=== PATIENT | female | born 1950 | race Caucasian/White ===

== ENCOUNTER → 2018-08-23 | Outpatient (CLI) | payer MEDICARE, BC ==
[~2018-08-23] MED LIST: CELEBREX 200MG200 MG PO; EVISTA 60MG60 MG/TAB PO; FOLIC ACID PO; HCTZ PO; SYNTHROID 0.0.025 MG PO; ZOLOFT50 MG PO
[2018-08-23 09:41] LABS: HIV 1/2 Antibodies Non-Reactive; HIV-1p24 Antigen Non-Reactive
== END ==
LOC: COL.LAB 08:34
PROVIDERS: Orthopaedic Surgery
DX: Z01.812 Encounter for preprocedural laboratory examination (principal); M17.11 Unilateral primary osteoarthritis, right knee

== ENCOUNTER 2020-02-24 08:14 | Day surgery (SDC) | payer MEDICARE, BC ==
[~2020-02-24] VITALS: Ht 165.1 cm; Wt 112.2 kg
[2020-02-24] VITALS (13 sets, daily range): BP systolic 98–174; BP diastolic 58–100; PULSE 69–83; TEMP 98
[2020-02-24 08:57] LABS: HEMOGLOBIN 15.1 g/dl (12.5-16.0); MEAN CELL VOLUME 97 fl (80.0-100.0); MEAN CORPUSCULAR HEMOGLOBIN 32 pg (27.0-31.0); MEAN CORPUSCULAR HGB CONC 33 g/dl (33.0-37.0); MEAN PLATELET VOLUME 9.6 fl (7.4-10.4); PLATELET COUNT 276 K/mm3 (130-400); RED BLOOD COUNT 4.74 M/mm3 (4.10-5.30); REDCELL DISTRIBUTION WIDTH-CV 13.1 % (11.5-14.5)
[2020-02-24 09:00] LABS: PROTHROMBIN TIME 10.9 SECONDS (9.7-12.8)
[2020-02-24] MEDS ORDERED: EVISTA 60MG60 MG/TAB PO (09:05)
[2020-02-24] MEDS ORDERED: ZOLOFT 100MG100 MG PO (09:05)
[2020-02-24] MEDS ORDERED: HCTZ12.5TAB PO (09:05)
[2020-02-24 09:06] LABS: CALCIUM 9.1 mg/dL (8.4-10.2); CREATININE, serum 0.64 (0.52-1.25); POTASSIUM 3.8 mmol/L (3.4-5.0)
[2020-02-24] MEDS ORDERED: SYNTHROID 0.0.025 MG PO (09:06)
[2020-02-24] MEDS ORDERED: FOSAMAX 70MG TA70 MG PO (09:06)
[2020-02-24] MEDS ORDERED: LIPITOR 10MG10 MG PO ×2 (09:07→11:47)
[2020-02-24] MEDS ORDERED: TYLENOL 8 HR PO (09:07)
[2020-02-24] MEDS ORDERED: ASPIRIN E.C. 8181 MG PO (09:07)
[2020-02-24] MEDS ORDERED: VALTREX 50500 MG/TAB PO (09:07)
[2020-02-24] MEDS ORDERED: KLOR-CON SPRIN10 MEQ PO (09:08)
[2020-02-24] MEDS ORDERED: TOPROL XL 25MG25 MG PO (09:08)
--- NOTE | 2020-02-24 11:02 | NUR ---
SEE MERGE DOCUMENTATION FOR MEDICATION ADMINISTRATION AND INTRA/POST PROCEDURE SEDATION ASSESSMETNS.
--- NOTE | 2020-02-24 16:24 | NUR ---
DC instructions reviewed with pt, she expresses understanding. INT DC'd with catheter intact, and bleeding controlled at site. Air removed from TR band in 2-3ml increments, pt tolerate well and no bleeding at site. Radial puncture site covered with 2x2 and bandaid. Rt groin puncture site remains soft to palpation, and dressing is clean, dry and intact. Pt is assisted out by wheelchair to 's car.
== END 2020-02-24 16:27 | disposition home or self-care (01) ==
LOC: COL.CAR 08:14
PROVIDERS: Internal Medicine Cardiovascular Disease
DX: I25.10 Atherosclerotic heart disease of native coronary artery without angina pectoris (principal); E78.5 Hyperlipidemia, unspecified; Z79.82 Long term (current) use of aspirin; Z79.899 Other long term (current) drug therapy; Z88.0 Allergy status to penicillin
CPT/HCPCS: J1644; J2250; J3010; Q9967